=== PATIENT | male | born 1970 | race Caucasian/White ===

== ENCOUNTER 2016-09-25 18:51 | Emergency (ER) | payer SELFPAY ==
[2016-09-25 19:12] VITALS: BP 130/83
[2016-09-25] MEDS ORDERED: Tetan/Diph/Pertus SYR(Tdap)* 0.5 ML SYR(BOOSTRIX) use SYR IM ONE (19:28)
[2016-09-25] MEDS ORDERED: HYDROcodone/ACETAMIN 5-325 MG* 1 TAB PO ONE (19:49)
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
== END 2016-09-25 21:03 | disposition home or self-care (01) ==
LOC: UCCORT 18:51
DX: S82.62XA Displaced fracture of lateral malleolus of left fibula, initial encounter for closed fracture (principal); S81.812A Laceration without foreign body, left lower leg, initial encounter; X58.XXXA Exposure to other specified factors, initial encounter; Y93.9 Activity, unspecified; Y92.89 Other specified places as the place of occurrence of the external cause; Y99.0 Civilian activity done for income or pay; Z23 Encounter for immunization; F17.210 Nicotine dependence, cigarettes, uncomplicated
CPT/HCPCS: 12001; 90471; 90715; 99213; G0463

== ENCOUNTER 2016-09-30 10:44 | Day surgery (SDC) | payer SELFPAY ==
[~2016-09-30 10:44] MED LIST: Buffered Lidocaine 0.9% SYRIN* 5 ML/SYR SYRINGE INTRADERM ONE; Famotidine IV* 10 MG/ML 2 ML (20 mg) IV ONE; Metoclopramide TAB* 10 MG PO ONE
[2016-09-30] MEDS ORDERED: Famotidine IV* 10 MG/ML 2 ML (20 mg) ONE (10:50)
[2016-09-30] MEDS ORDERED: Metoclopramide TAB* 10 MG ONE (10:50)
[2016-09-30] MEDS ORDERED: KETAMINE HCL* 50 MG/ML 10 ML VIAL ONE ×2 (10:53→11:12)
[2016-09-30] MEDS ORDERED: Propofol* 10 MG/ML 20 ML BTL IV PUSH ONE ×2 (10:53→11:12)
[2016-09-30] MEDS ORDERED: ceFAZolin 2 GM PREMIX (*) 2 GM/50 ML BAG IVPB ONE (10:53)
[2016-09-30] MEDS ORDERED: fentaNYL* 50 MCG/ML 2 ML VIAL (100 MCG VIAL) ONE ×4 (10:53→13:21)
[2016-09-30] MEDS ORDERED: Lidocaine 2% PF * 5 ML VIAL ONE ×2 (10:53→11:12)
[2016-09-30] MEDS ORDERED: Midazolam* 1 MG/ML 5 ML VIAL (5 MG) ONE ×2 (10:53→11:12)
[2016-09-30] MEDS ORDERED: Dexamethasone IV* 4 MG/ML 1 ML (4 MG) ONE ×2 (10:53→11:12)
[2016-09-30] MEDS ORDERED: Ketorolac INJ* 30 MG/ML 1 ML VIAL ONE ×2 (10:53→11:12)
[2016-09-30] MEDS ORDERED: Ondansetron INJ* 2 MG/ML VIAL ONE ×2 (10:53→11:12)
[2016-09-30] MEDS ORDERED: ceFAZolin 1 GM in Dextrose (*) 1 GM/50 ML BAG IVPB ONE (11:10)
[2016-09-30] MEDS ORDERED: Bupivacaine 0.5% SDV PF* 30 ML VIAL ONE ×2 (11:10→11:37)
[2016-09-30] MEDS ORDERED: Cisatracurium* 2 MG/ML MDV 5 ML ONE (11:12)
[2016-09-30] MEDS ORDERED: Glycopyrrolate IV* 0.2 MG/ML 1 ML VIAL ONE (12:29)
[2016-09-30] MEDS ORDERED: Neostigmine Methylsulfate* 2 MG/2 ML SYRINGE ONE (12:29)
[2016-09-30] MEDS ORDERED: Ondansetron INJ* 2 MG/ML VIAL IV PRN (12:48)
[2016-09-30] MEDS ORDERED: oxyCODONE/Acetamin 5/325 MG* TAB ONE (13:21)
[2016-09-30] MEDS: fentaNYL* 50 MCG/ML 2 ML VIAL (100 MCG VIAL) IV PRN ×2 (13:23→13:28)
[2016-09-30] MEDS: oxyCODONE/Acetamin 5/325 MG* TAB PO PRN ×2 (13:24→13:25)
[2016-09-30 14:00] VITALS: BP 120/77
--- NOTE | 2016-10-01 07:15 | RAD ---
INDICATION: Traumatic fracture of the left ankle operative reduction and internal fixation. COMPARISON: Comparison is made with a prior x-ray study of the left ankle from September 25, 2016. TECHNIQUE: 3.4 seconds of intermittent fluoroscopic guidance were provided and 2 spot films of the left ankle were obtained in the operating room. FINDINGS: The films demonstrate placement of a surgical plate along the posterolateral aspect of the distal fibula transfixed with multiple screws spanning the fracture fragments. The bones are in normal alignment. IMPRESSION: INTRAOPERATIVE CONTROL FILMS. CPT II Codes: 6045F
--- NOTE | 2016-10-01 13:43 | OP ---
DATE OF OPERATION: 09/30/16 - [facility] DATE OF : 72 SURGEON: Carlos Martin MD POULTRY GRADER: Kate Nicole PA-C. ANESTHESIOLOGIST: Eliel Chicas MD ANESTHESIA: General PRE-OP DIAGNOSIS: Displaced left fibular fracture. POST-OP DIAGNOSIS: Displaced left fibular fracture. OPERATIVE PROCEDURE: Internal fixation left fibular fracture. DESCRIPTION OF PROCEDURE: The patient was taken to the operating room where longitudinal incision was made over the distal left fibula. We incised along the lateral and posterior aspect of the fibula. The oblique fracture was identified and reduced out to length with a [id number]-[id number] clamp and then pinned longitudinally with 0.062 C-wire. We then fashioned a 3.5 mm Recon plate to fit the posterolateral aspect of the fibula, posterior to anterior cortical screws were placed with compression across the fracture as well as one lag screw. The pin was removed in this process. We then performed a lateral and AP x-ray, which showed good reduction of the mortise as well as the fracture itself. We irrigated thoroughly closing with Vicryl and bernabe for the skin and a compression dressing, plaster splint applied. [id number]/[facility] #: [id number] MTDD
== END 2016-09-30 15:01 | disposition home or self-care (01) ==
LOC: OR 10:44
PROVIDERS: ATTEND Orthopaedic Surgery
DX: S82.62XA Displaced fracture of lateral malleolus of left fibula, initial encounter for closed fracture (principal); W01.0XXA Fall on same level from slipping, tripping and stumbling without subsequent striking against object, initial encounter; Y92.89 Other specified places as the place of occurrence of the external cause; E11.9 Type 2 diabetes mellitus without complications; Z79.84 Long term (current) use of oral hypoglycemic drugs; F17.210 Nicotine dependence, cigarettes, uncomplicated
CPT/HCPCS: 76001; A9270-GY; C1713; C1776; J0690; J1100; J1885; J2250; J2405; J2704; J3010

== ENCOUNTER 2017-08-04 08:42 | Day surgery (SDC) | payer OTHER ==
[~2017-08-04 08:42] MED LIST changes: -Famotidine IV* 10 MG/ML 2 ML (20 mg) IV ONE; -Metoclopramide TAB* 10 MG PO ONE
[2017-08-04] MEDS ORDERED: ceFAZolin 2 GM PREMIX (*) 2 GM/50 ML BAG IVPB ONE (09:07)
[2017-08-04] MEDS ORDERED: ceFAZolin 1 GM in Dextrose (*) 1 GM/50 ML BAG IVPB ONE (09:07)
[2017-08-04] MEDS ORDERED: fentaNYL* 50 MCG/ML 2 ML VIAL (100 MCG VIAL) ONE ×2 (11:07→12:38)
[2017-08-04] MEDS ORDERED: Midazolam* 1 MG/ML 2 ML VIAL (2 MG) ONE (11:07)
[2017-08-04] MEDS ORDERED: Bupivacaine 0.5% SDV PF* 30ML VIAL ONE (11:55)
[2017-08-04] MEDS ORDERED: Propofol* 10 MG/ML 20 ML BTL IV PUSH ONE (12:30)
[2017-08-04] MEDS ORDERED: Ketorolac INJ* 30 MG/ML 1 ML VIAL ONE (12:30)
[2017-08-04] MEDS ORDERED: Lidocaine 2% PF * 5 ML VIAL ONE (12:30)
[2017-08-04] MEDS ORDERED: Phenylephrine INJ* 10 MG/ML 1 ML VIAL (10 MG) ONE (12:48)
[2017-08-04] MEDS ORDERED: Ondansetron SYRINGE* 4 MG/2 ML SYRINGE (from 40mg/20ml vial) IV ONE (13:00)
[2017-08-04] MEDS ORDERED: fentaNYL* 50 MCG/ML 2 ML VIAL (100 MCG VIAL) IV PRN (13:15)
[2017-08-04] MEDS ORDERED: Naloxone* 0.4 MG/ML 1 ML VIAL IV PRN (13:15)
[2017-08-04] MEDS ORDERED: oxyCODONE TAB* 5 MG TAB ONE (14:10)
[2017-08-04 14:13] VITALS: BP 123/78
--- NOTE | 2017-08-05 10:26 | OP ---
DATE OF OPERATION: 08/04/17 - [facility] DATE OF : 72 SURGEON: Carlos Martin MD PATIENT INTAKE REPRESENTATIVE: Tala Daniels PA-C PRE-OP DIAGNOSIS: Painful left fibular plate, possible peroneal tendon disruption. POST-OP DIAGNOSIS: Painful left fibular plate, peroneal brevis and longus tendons intact. OPERATIVE PROCEDURE: Removal of left fibular plate and exploration of peroneal tendons. DESCRIPTION OF PROCEDURE: The patient was taken to the operating room where we made a longitudinal incision over the distal fibula. The periosteum was reflected away from the posterior aspect of the fibular plate, which was then removed with appropriate small fragment screwdrivers. Within the peroneal sheath, we were able to open the tendon sheath longitudinally directly behind the fibula to allow good visualization of the peroneus brevis and longus tendons ; they were both intact. We then repaired the edge of the sheath to the thick periosteum with 2-0 Vicryl sutures, 2-0 subcutaneous sutures, and bernabe for the skin. Compression dressing applied. [id number]/[facility] #: [id number] [facility] CENTERMaxim
== END 2017-08-04 14:24 | disposition home or self-care (01) ==
LOC: OR 08:42
PROVIDERS: ATTEND Orthopaedic Surgery
DX: T84.84XA Pain due to internal orthopedic prosthetic devices, implants and grafts, initial encounter (principal); Y83.1 Surgical operation with implant of artificial internal device as the cause of abnormal reaction of the patient, or of later complication, without mention of misadventure at the time of the procedure; F17.210 Nicotine dependence, cigarettes, uncomplicated; E66.01 Morbid (severe) obesity due to excess calories; E11.8 Type 2 diabetes mellitus with unspecified complications; Z79.84 Long term (current) use of oral hypoglycemic drugs; S82.62XD Displaced fracture of lateral malleolus of left fibula, subsequent encounter for closed fracture with routine healing; W01.0XXD Fall on same level from slipping, tripping and stumbling without subsequent striking against object, subsequent encounter
CPT/HCPCS: 88300; A9270-GY; J0690; J1885; J2250; J2405; J2704; J3010

== ENCOUNTER 2018-04-21 11:15 | Emergency (ER) | payer BC, OTHER ==
[2018-04-21 11:35] VITALS: BP 166/89
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
== END 2018-04-21 12:27 | disposition home or self-care (01) ==
LOC: UCCORT 11:15
DX: S39.012A Strain of muscle, fascia and tendon of lower back, initial encounter (principal); S16.1XXA Strain of muscle, fascia and tendon at neck level, initial encounter; F17.210 Nicotine dependence, cigarettes, uncomplicated; I10 Essential (primary) hypertension; E11.9 Type 2 diabetes mellitus without complications; V89.2XXA Person injured in unspecified motor-vehicle accident, traffic, initial encounter; Y92.9 Unspecified place or not applicable
CPT/HCPCS: 72040; 72100; 99213; G0463

== ENCOUNTER 2018-06-21 20:34 | Emergency (ER) | payer BC, OTHER ==
--- NOTE | 2018-06-21 20:46 | UC ---
Lower Extremity/Ankle HPI - HPI Summary HPI Summary: 47-year-old male presents with complaints of right ankle pain. States earlier this evening he was walking across his yard and he caught his toe on something on the ground causing an inversion injury to his right ankle. Complains of pain and swelling over the lateral malleolus. He has been able to bear weight with discomfort since the injury. Has taken ibuprofen 600 mg about 3-4 hours prior to arrival with minimal relief in pain. Denies numbness or tingling. - History of Current Complaint Stated Complaint: RIGHT ANKLE INJURY Time Seen by Provider: 06/21/18 20:36 Hx Obtained From: Patient - Allergies/Home Medications Allergies/Adverse Reactions: Allergies Allergy/AdvReac Type Severity Reaction Status Date / Time No Known Allergies Allergy Verified 06/21/18 20:39 PMH/Surg Hx/FS Hx/Imm Hx Endocrine History: Diabetes, Dyslipidemia Cardiovascular History: Hypertension Psychological History: Depression - Surgical History Surgical History: Yes Surgery Procedure, Year, and Place: LEFT ANKLE x2 - Family History Known Family History: Positive: Non-Contributory - Social History Occupation: Employed Full-time Lives: With Family Alcohol Use: None Substance Use Type: None Smoking Status (MU): Heavy Every Day Tobacco Smoker Type: Cigarettes Amount Used/How Often: 1/2 PPD FOR 20 YRS Length of Time of Smoking/Using Tobacco: 20 YRS Have You Smoked in the Last Year: Yes Household Exposure Type: Cigarettes - Immunization History Most Recent Tetanus Shot: unknown Review of Systems All Other Systems Reviewed And Are Negative: Yes Constitutional: Negative: Fever, Chills Skin: Negative: Bruising Respiratory: Positive: Negative Cardiovascular: Positive: Negative Gastrointestinal: Positive: Negative Genitourinary: Positive: Negative Musculoskeletal: Positive: Other: - See HPI Neurological: Positive: Negative Is Patient Immunocompromised?: No Physical Exam - Summary Physical Exam Summary: GENERAL APPEARANCE: Alert and cooperative obese adult male who appears to be in some discomfort but no acute distress. HEAD: Atraumatic. Normocephalic. CARDIAC: Normal S1 and S2. No S3, S4 or murmurs. Rhythm is regular. There is no peripheral edema, cyanosis or pallor. Extremities are warm and well perfused. Capillary refill is less than 2 seconds. Peripheral pulses intact. LUNGS: Clear to auscultation without rales, rhonchi, wheezing or diminished breath sounds. ABDOMEN: Positive bowel sounds. Soft, nondistended, nontender. No guarding or rebound. No masses or hepatosplenomegally. MUSKULOSKELETAL: Normal muscular development. Limping gait. EXTREMITIES: Tenderness over the right lateral malleolus with mild-moderate edema. No gross deformity or ecchymosis noted. Sensation and circulation intact. SKIN: Skin normal color, texture and turgor. Triage Information Reviewed: Yes Vital Signs Reviewed: Yes Diagnostics - Radiology No standard instances Radiology Interpretation Completed By: ED Physician - No acute fracture or dislocation Lower Extremity Course/Dx - Course Course Of Treatment: 47-year-old male presents with complaints of right ankle pain. States earlier this evening he was walking across his yard and he caught his toe on something on the ground causing an inversion injury to his right ankle. Complains of pain and swelling over the lateral malleolus. He has been able to bear weight with discomfort since the injury. Has taken ibuprofen 600 mg about 3-4 hours prior to arrival with minimal relief in pain. Denies numbness or tingling. Afebrile. Vital signs stable. Exam remarkable for tenderness over the right lateral malleolus with mild-moderate edema. No gross deformity or ecchymosis noted. Sensation and circulation intact. X-ray showed no acute fracture or dislocation. Recommending conservative treatment for right ankle sprain. He was placed in an JESSICA wrap by the RN. States he has crutches at home therefore recommending use for progressive weight bearing as tolerated. He is to follow up with orthopedic surgery in 5-7 days if no improvement in symptoms. Anticipatory guidance and warning symptoms were reviewed with the patient. Verbalizes understanding and agrees with POC. - Differential Dx/Diagnosis Differential Diagnosis/HQI/PQRI: Contusion, Dislocation, Fracture (Closed), Sprain Provider Diagnosis: Right ankle sprain Discharge - Sign-Out/Discharge Documenting (check all that apply): Patient Departure All imaging exams completed and their final reports reviewed: No - Discharge Plan Condition: Stable Disposition: HOME Patient Education Materials: Ankle Sprain (ED), Crutch Instructions (ED) Forms: *Work Release Referrals: Giana Mix PA [Primary Care Provider] - Papi Cooper MD [Medical Doctor] - 5 Days (Follow up in 5-7 days if no improvement in symptoms.) Additional Instructions: The x-ray performed in the clinic today showed no evidence of a fracture. I suspect you have a right ankle sprain. Rest the ankle as much as possible. You may walk and bear weight as tolerated. Use the crutches you have at home for support. Apply ice to the affected area for 15-20 minutes at least 4 times a day to help with the pain and swelling. Elevate the leg while sitting to help reduce swelling. Take acetaminophen (Tylenol) or ibuprofen (Advil, Motrin) according to directions as needed for pain. Follow up with orthopedic surgery in 5-7 days if symptoms do not improve. Seek immediate medical attention if you have severe pain not managed with pain medication, you are unable to walk or bear any weight, or have any worsening of symptoms. - Billing Disposition and Condition Condition: STABLE Disposition: Home
[2018-06-21 20:53] VITALS: BP 128/79
--- NOTE | 2018-06-22 13:44 | UC ---
- Progress Note Progress Note: Patient Name: KAYLYNN THOMPSON Medical Record#: [id number] Ordering Physician: Kurt Camp NP Acct.#: [id number] : 1970 Age: 47 Sex: M Location: [facility] Exam Date: 06/21/182039 ADM Status: DEP ER Order Information: ANKLE RIGHT 3+VWS Accession Number: [id number] CPT: 62854 INDICATION: Right lateral ankle pain after an inversion injury COMPARISON: None. TECHNIQUE: 3 views of the right ankle were obtained. FINDINGS: There is asymmetric soft tissue swelling overlying the fibular malleolus. Incidentally noted is a well-circumscribed bony focus immediately posterior to the talocalcaneal joint measuring 9 mm. The bones are normal alignment. Joint spaces appear maintained. No fracture is seen. IMPRESSION: SOFT TISSUE SWELLING OVERLYING THE FIBULAR MALLEOLUS WITHOUT RADIOGRAPHICALLY APPARENT ACUTE FRACTURE OR DISLOCATION. If the patient's symptoms persist, follow-up imaging is recommended. R0 Preliminary Imaging Read R0 <Electronically signed by Lazaro Hernandez MD in OV> 06/22/18756 Dictated By: Lazaro Hernandez MD Dictated Date/Time: 06/22/18756 Transcribed Date/Time: 06/22/18754 Copy to: CC:Kurt Camp NP; Giana MELISSA; Elías Zaman MD Imaging - [facility] Imaging [facility] [address] [address] ph ([phone]) ph ([phone]) ph ([phone]) This report is only to be considered final once signed by the Provider(s) as displayed in the "<Electronically Signed by >" field (s). Absence of a signature indicates the report is in a draft status and still needs to be finalized. In the event this document was created by someone other than the signing Provider, the individual initiating the document will be listed in the "Entered by:" or "Dictated by:" brown. 1 of Course/Dx - Diagnoses Provider Diagnoses: Right ankle sprain Discharge - Sign-Out/Discharge Documenting (check all that apply): Post-Discharge Follow Up All imaging exams completed and their final reports reviewed: Yes - Discharge Plan Condition: Stable Disposition: HOME Patient Education Materials: Ankle Sprain (ED), Crutch Instructions (ED) Forms: *Work Release Referrals: Papi Cooper MD [Medical Doctor] - 5 Days (Follow up in 5-7 days if no improvement in symptoms.) Giana Mix PA [Primary Care Provider] - Additional Instructions: The x-ray performed in the clinic today showed no evidence of a fracture. I suspect you have a right ankle sprain. Rest the ankle as much as possible. You may walk and bear weight as tolerated. Use the crutches you have at home for support. Apply ice to the affected area for 15-20 minutes at least 4 times a day to help with the pain and swelling. Elevate the leg while sitting to help reduce swelling. Take acetaminophen (Tylenol) or ibuprofen (Advil, Motrin) according to directions as needed for pain. Follow up with orthopedic surgery in 5-7 days if symptoms do not improve. Seek immediate medical attention if you have severe pain not managed with pain medication, you are unable to walk or bear any weight, or have any worsening of symptoms. - Billing Disposition and Condition Condition: STABLE Disposition: Home
== END 2018-06-21 21:25 | disposition home or self-care (01) ==
LOC: UCCORT 20:34
DX: S93.401A Sprain of unspecified ligament of right ankle, initial encounter (principal); I10 Essential (primary) hypertension; E11.9 Type 2 diabetes mellitus without complications; F17.210 Nicotine dependence, cigarettes, uncomplicated; X50.0XXA Overexertion from strenuous movement or load, initial encounter; Y93.01 Activity, walking, marching and hiking; Y92.096 Garden or yard of other non-institutional residence as the place of occurrence of the external cause
CPT/HCPCS: 99212; G0463